=== PATIENT | female | born 1985 | race Caucasian/White ===

== ENCOUNTER 2019-02-14 11:46 | Emergency (ER) | payer OTHER ==
[~2019-02-14] VITALS: Ht 172.7 cm; Wt 63.5 kg
[2019-02-14 11:48] VITALS: BP 121/62
--- NOTE | 2019-02-14 12:19 | PHYS DOC ---
Past History Past Medical History: Hypothyroid Past Surgical History: No Surgical History Smoking: Non-smoker Alcohol Use: None Drug Use: None Adult General Chief Complaint Chief Complaint: KNEE INJURY HPI HPI Patient is a 33-year-old female presents complaining of left knee pain. This happened shortly prior to arrival. Patient was walking laterally/sidestepping in between pews at [employer] when her knee Displaced. It went back into the right place. No other trauma. No fall. No numbness or tingling. Patient is able to ambulate with pain. Pain is mild at this time. No previous history of knee injury or surgery.[] Review of Systems Review of Systems Constitutional: Denies fever or chills [] Eyes: Denies change in visual acuity, redness, or eye pain [] HENT: Denies nasal congestion or sore throat [] Respiratory: Denies cough or shortness of breath [] Cardiovascular: No chest pain or palpitations[] GI: Denies abdominal pain, nausea, vomiting, bloody stools or diarrhea [] : Denies dysuria or hematuria [] Musculoskeletal: See history of present illness[] Integument: Denies rash or skin lesions [] Neurologic: Denies headache, focal weakness or sensory changes [] Endocrine: Denies polyuria or polydipsia [] All other systems were reviewed and found to be within normal limits, except as documented in this note. Allergies Allergies Allergies Coded Allergies Type Severity Reaction Last Updated Verified Sulfa (Sulfonamide Antibiotics) Allergy Unknown 02/14/19 Yes Physical Exam Physical Exam Constitutional: Well developed, well nourished, no acute distress, non-toxic appearance. [] HENT: Normocephalic, atraumatic, bilateral external ears normal, oropharynx moist, no oral exudates, nose normal. [] Eyes: PERRLA, EOMI, conjunctiva normal, no discharge. [] Neck: Normal range of motion, no tenderness, supple, no stridor. [] Cardiovascular:Heart rate regular rhythm, no murmur [] Lungs & Thorax: Bilateral breath sounds clear to auscultation [] Abdomen: Bowel sounds normal, soft, no tenderness, no masses, no pulsatile masses. [] Skin: Warm, dry, no erythema, no rash. [] Back: No tenderness, no CVA tenderness. [] Extremities: Left knee: No significant effusion, no bruising, full active range of motion, mild edema, no varus or valgus laxity, negative drawer, negative Lach man test. A joint above and below were evaluated and were normal. Patient is distally neurovascularly intact The other 3 extremities show: No tenderness, no cyanosis, no clubbing, ROM intact, no edema. [] Neurologic: Alert and oriented X 3, normal motor function, normal sensory function, no focal deficits noted. [] Psychologic: Affect normal, judgement normal, mood normal. [] EKG EKG [] Radiology/Procedures Radiology/Procedures X-ray of the left knee shows no fracture or dislocation.[] Course & Med Decision Making Course & Med Decision Making Pertinent Labs and Imaging studies reviewed. (See chart for details) ED course: Patient arrived, was placed in bed, and tolerated exam well. Patient deferred pain medicine at the time of exam. She was transported to and from radiology with any complications. After the return of the imaging findings these were discussed with the patient voiced understanding. Knee immobilizer was placed. She was discharged in improved condition, distally neurovascularly inta ct, with all questions answered. Medical decision making: There is no evidence of a fracture or dislocation. No evidence of neurologic or vascular injury. This appears to have been a patellar dislocation which reduced without intervention in the emergency department. Having patient follow up with orthopedic surgery as well as her primary care physician for further evaluation and treatment.[] Dragon Disclaimer Dragon Disclaimer This electronic medical record was generated, in whole or in part, using a voice recognition dictation system. Departure Departure: Impression: Primary Impression: Patellar dislocation Disposition: 01 HOME, SELF-CARE Condition: IMPROVED Referrals: MAGALI PORTER PA-C (PCP) Follow-up in 2 days Patient Instructions: Knee Immobilizer-Brief, Patellar Dislocation and Subluxation with [facility] Additional Instructions: Follow-up with your regular doctor in 2 days. Return to the ER if worsening pain, weakness, or any other concerns. Scripts Meloxicam (MELOXICAM) 7.5 Mg Tablet 7.5 MG PO DAILY for PAIN, #20 TAB Prov: JAY BUI DO 02/14/19 Problem Qualifiers Primary Impression: Patellar dislocation Encounter type: initial encounter Laterality: left Qualified Codes: S83.005A - Unspecified dislocation of left patella, initial encounter JAY BUI DO Feb 14, 2019 12:19
--- NOTE | 2019-02-14 12:42 | RAD ---
Indication:Displaced knee cap. TECHNIQUE: 3 views of the left knee COMPARISON:None FINDINGS/ impression: No acute fracture or dislocation. Small joint effusion. Electronically signed by: Jeremie Carvalho DO (02/14/2019 12:39 PM) [facility]
[2019-02-14] MEDS ORDERED: MELO7.5T29 PO (12:43)
== END 2019-02-14 12:50 | disposition home or self-care (01) ==
LOC: ER 11:46
DX: S83.005A Unspecified dislocation of left patella, initial encounter (principal); E03.9 Hypothyroidism, unspecified; Z88.2 Allergy status to sulfonamides; X50.9XXA Other and unspecified overexertion or strenuous movements or postures, initial encounter; Y93.01 Activity, walking, marching and hiking; Y92.22 Religious institution as the place of occurrence of the external cause; Y99.8 Other external cause status
CPT/HCPCS: 29505; 73562; 99284